=== PATIENT | female | born 1950 | race Caucasian/White ===

== ENCOUNTER 2023-08-24 22:11 | Emergency (ER) | payer MEDICARE, BC ==
[~2023-08-24] VITALS: Ht 167.6 cm; Wt 78.0 kg
[2023-08-24 22:54] VITALS: TEMP 98
[2023-08-24] MEDS ORDERED: ACETAMINOPHEN ES 500 MG TABLET ONE (23:27)
[2023-08-24] MEDS ORDERED: ACETAMINOPHEN ES 500 MG TABLET PO ONE (23:30)
[2023-08-25 00:26] VITALS: BP 119/64; O2SAT 96
== END 2023-08-25 00:30 | disposition home or self-care (01) ==
LOC: ER 22:22
DX: M54.2 Cervicalgia (principal); E11.9 Type 2 diabetes mellitus without complications; Z90.49 Acquired absence of other specified parts of digestive tract
CPT/HCPCS: 70450-TC; 72125-TC

== ENCOUNTER → 2024-03-25 | Emergency (ER) | payer MEDICARE, BC, OTHER ==
[~2024-03-25] VITALS: Ht 167.6 cm; Wt 68.0 kg
[~2024-03-25] MED LIST: CALCIUM CARBONATE 500 MG TAB.CHEW ONE; LOPERAMIDE HCL (2 MG CAP) 2 MG CAPSULE ONE
[2024-03-25 23:28] LABS: BASOPHILS % (AUTO) 0.9 % (0.0-2.0); HEMATOCRIT 31 % (33-45); HEMOGLOBIN 10.8 g/dL (11.5-14.8); LYMPHOCYTES % (AUTO) 25.3 % (20.0-44.0); MEAN CORPUSCULAR HEMOGLOBIN 34 PG (26.0-33.0); MEAN CORPUSCULAR HGB CONC 35 g/dl (31.0-36.0); MEAN CORPUSCULAR VOLUME 100 fL (82-100); MONOCYTES # (AUTO) 0.2 K/uL (0.1-1.30); MONOCYTES % (AUTO) 5.2 % (2.0-12.0); NEUTROPHILS # (AUTO) 2.7 K/uL (1.8-8.9); NEUTROPHILS % (AUTO) 67.6 % (43.0-81.0); PLATELET COUNT (AUTO) 232 K/uL (150-450); RED BLOOD CELL COUNT(AUTO) 3.13 MIL/uL (4.0-5.2); RED CELL DISTRIBUTION WIDTH 14.8 % (11.5-15.0); WHITE BLOOD COUNT (AUTO) 3.9 K/uL (4.3-11.0)
[2024-03-25 23:32] LABS: CALCIUM, SERUM 8.1 mg/dL (8.5-10.1); CARBON DIOXIDE 27 mmol/L (21-32); CHLORIDE 107 mmol/L (98-107); CREATININE 0.8 mg/dL (0.6-1.3); GLUCOSE 135 mg/dL (74-106); POTASSIUM 4.1 mmol/L (3.5-5.1); SODIUM SERUM 141 mmol/L (136-145); UREA NITROGEN, BLOOD 10 mg/dL (7-18)
[2024-03-25] MEDS: LOPERAMIDE HCL (2 MG CAP) 2 MG CAPSULE PO ONE (23:32)
[2024-03-25] MEDS: IV NS 0.9% 500 ML IV ONE (23:32)
[2024-03-25 23:38] LABS: ALANINE AMINOTRANSFERASE 82 U/L (12-78); ALBUMIN 2.9 g/dL (3.4-5.0); ALKALINE PHOSPHATASE 109 U/L (46-116); ASPARTATE AMINOTRANSFERASE 50 U/L (15-37); BILIRUBIN,TOTAL 0.8 mg/dL (0.2-1.0); TOTAL PROTEIN, SERUM 6.8 g/dL (6.4-8.2)
[2024-03-26] MEDS: CALCIUM CARBONATE (1250) 500 MG TABLET PO STA (01:01)
[2024-03-26] MEDS: CALCIUM GLUCONATE 500 MG TABLET PO STA (01:02)
[2024-03-26 01:03] VITALS: BP 123/75; TEMP 98.6; O2SAT 99
== END | disposition home or self-care (01) ==
LOC: ER 22:29
DX: R19.7 Diarrhea, unspecified (principal); E11.9 Type 2 diabetes mellitus without complications; Z85.3 Personal history of malignant neoplasm of breast; Z90.49 Acquired absence of other specified parts of digestive tract
CPT/HCPCS: 99283; 85025; 36415; 80053; J7030